=== PATIENT | female | born 1970 | race Hispanic/Latino ===

== ENCOUNTER 2017-04-30 20:52 | Inpatient (IN) | payer OTHER ==
[~2017-04-30] VITALS: Ht 157.5 cm; Wt 69.6 kg
[2017-04-30] MEDS ORDERED: ONDANSETRON HCL INJ 2 MG/ML VIAL IV STA (21:10)
[2017-04-30] MEDS ORDERED: SODIUM CHLORIDE 0.9% 1000ML 1,000 ML IV STA (21:10)
[2017-04-30] MEDS ORDERED: MORPHINE SULFATE 4 MG/ML SYR IV STA (21:10)
[2017-04-30] MEDS ORDERED: PHENOBARBITAL30 MG (21:12)
[2017-04-30] MEDS ORDERED: DIATRIZOATE MEGL/DIATRIZOA SOD 30 ML BTL PO ONE (21:32)
[2017-04-30 21:47] LABS: BASOPHILS % 0.2 % (0.0-1.0); LYMPHOCYTES % 7.1 % (18.0-39.1); MEAN CORPUSCULAR HEMOGLOBIN 29.4 pg (28-32); MEAN CORPUSCULAR HGB CONC 34.1 g/dL (31-35); MEAN CORPUSCULAR VOLUME 86.1 fL (81-99); MONOCYTES # (AUTO) 1.3 (0.2-0.8); MONOCYTES % 9.1 % (4.4-11.3); NEUTROPHILS # (AUTO) 11.7 (2.1-6.9); NEUTROPHILS % 79.4 % (38.7-80.0); PLATELET COUNT 372 x10e3/uL (140-360); RED BLOOD COUNT 5.11 x10e6/uL (3.6-5.1); RED CELL DISTRIBUTION WIDTH 14.6 % (11.7-14.4)
[2017-04-30 21:48] LABS: BILIRUBIN,URINE 2+ (NEGATIVE); COLOR,URINE AMBER (YELLOW); KETONES,URINE 2+ (NEGATIVE); LEUKOCYTE ESTERASE ,URINE TRACE (NEGATIVE); URINE UROBILINOGEN 4 mg/dL (0.2 - 1)
[2017-04-30 21:55] LABS: INR 1.29; PROTHROMBIN TIME 15.1 seconds (11.9-14.5)
[2017-04-30 21:56] LABS: PARTIAL THROMBOPLASTIN TIME 48.3 seconds (23.8-35.5)
[2017-04-30 22:00] LABS: CLARITY,URINE SL CLOUDY (CLEAR); NITRITE,URINE POSITIVE (NEGATIVE); PROTEIN,URINE DIPSTICK 1+ (NEGATIVE)
[2017-04-30] MEDS ORDERED: MORPHINE SULFATE 2 MG/ML SYR ONE (22:03)
[2017-04-30 22:04] LABS: AMORPHOUS SEDIMENT,URINE FEW (FEW); BACTERIA,URINE MANY /HPF; EPITHELIAL CELLS,URINE FEW /LPF; MUCUS,URINE FEW (RARE)
[2017-04-30 22:05] LABS: ALANINE AMINOTRANSFERASE 36 IU/L (0-55); ALBUMIN 2.9 g/dL (3.5-5.0); ALBUMIN/GLOBULIN RATIO 0.5 (0.8-2.0); ALKALINE PHOSPHATASE 110 IU/L (40-150); ANION GAP 20.3 mmol/L (8-16); BLOOD UREA NITROGEN 28 mg/dL (7-26); BUN/CREATININE RATIO 34 (6-25); CALCIUM 9.9 mg/dL (8.4-10.2); CARBON DIOXIDE 34 mmol/L (22-29); CHLORIDE 89 mmol/L (98-107); CREATINE KINASE 21 IU/L (29-168); CREATININE, SERUM 0.83 mg/dL (0.57-1.11); EST GLOMERULAR FILTRATION RATE > 60 ML/MIN (60-); GLUCOSE 157 mg/dL (74-118); MAGNESIUM 2.1 MG/DL (1.3-2.1); POTASSIUM 3.3 mmol/L (3.5-5.1); SODIUM 140 mmol/L (136-145)
[2017-04-30 22:11] LABS: B-TYPE NATRIURETIC PEPTIDE2 < 10.0 pg/mL (0-100)
[2017-04-30] MEDS ORDERED: CEFTRIAXONE SOD 1 GM VIAL IV ONE (22:15)
--- NOTE | 2017-04-30 22:24 | Diagnostic Imaging Report ---
CHEST SINGLE (PORTABLE), 04/30/2017 9:10 PM Technique: CHEST SINGLE (PORTABLE) Comparison: None available. Clinical history: Vomiting Findings: Unremarkable appearance of the heart, mediastinum, lungs and pleural spaces. Impression: 1. Lines/Tubes: None 2. No acute abnormality. Signed by: Dr Radha Plascencia MD on 04/30/2017 10:20 PM
--- NOTE | 2017-05-01 00:22 | Diagnostic Imaging Report ---
EXAM: CT ABDOMEN/PELVIS W DATE: 04/30/2017 9:10 PM INDICATION: Small bowel diverticulitis, abdominal pain COMPARISON: None TECHNIQUE: The abdomen and pelvis were scanned using a multidetector helical scanner. Coronal and sagittal reformations were obtained. Routine protocol performed. IV Contrast: 100 ml Isovue 370 Oral contrast was administered FINDINGS: LOWER THORAX: No consolidations LIVER/BILIARY: Subcentimeter left liver hypodensity is too small to characterize though likely benign/cyst. No ductal dilatation. GALLBLADDER: Possible layering gallbladder sludge/stones. SPLEEN: Unremarkable PANCREAS: Unremarkable ADRENALS: No nodules KIDNEYS: Symmetric perfusion. No enhancing masses. No hydronephrosis. GI TRACT: Moderate dilation of proximal small bowel with transition in the right midabdomen. Remaining small bowel and colon are decompressed. Several small bowel loops are thickened coursing through it and adjacent to these interloop collections in the right lower quadrant. Appendix is dilated containing appendicoliths measuring 1.1 cm and surrounded by small loculated gas and fluid collection. Several loculated interloop collections with dominant gas and fluid collection in the cul-de-sac with rim enhancement (8 x 6 cm). VESSELS: Unremarkable PERITONEUM/RETROPERITONEUM: No free air or fluid LYMPH NODES: No lymphadenopathy REPRODUCTIVE ORGANS/BLADDER: Unremarkable SOFT TISSUES: Unremarkable BONES: Predominantly L4-S1 degenerative changes. IMPRESSION: 1. Overall, constellation of findings is compatible with perforated viscus (suspect ruptured appendicitis) with multiple right lower quadrant interloop and pelvic contained gas and fluid collections/abscesses. 2. Developing small bowel obstruction. Discussed with Dr. Daigle at 1215 AM on 05/01/2017 Signed by: Dr Radha Plascencia MD on 05/01/2017 12:18 AM
[2017-05-01] MEDS ORDERED: BENZOCAINE/TETRACAINE/BUTAMBEN AERO SPRAY 56 GM CAN TOP ONE (00:30)
[2017-05-01] MEDS ORDERED: KCL 20MEQ/.9 SOD CHL 1,000 ML IV ONE (01:00)
[2017-05-01] MEDS: PIPER-TAZ 3.375 GM 50 ML IV SCH ×3 (01:07→11:00)
[2017-05-01] MEDS ORDERED: SODIUM CHLORIDE 0.9% 1000ML 1,000 ML ONE ×2 (01:07→19:24)
[2017-05-01] MEDS: METRONIDAZOLE 500MG/NS 100ML 100 ML IV SCH ×4 (01:07→23:00)
[2017-05-01] MEDS ORDERED: SODIUM CHLORIDE 0.9% 1000ML 1,000 ML IV STA (01:08)
[2017-05-01] MEDS ORDERED: ONDANSETRON HCL INJ 2 MG/ML VIAL IV PRN (01:15)
[2017-05-01] MEDS ORDERED: MORPHINE SULFATE 2 MG/ML SYR IV PRN (01:15)
--- OUTSIDE RECORDS SUMMARY | 2017-05-01 01:27 | XMS REPORT ---
Author Author [facility] Organization [facility] Address Unknown Phone Unavailable Care Team Providers Care Commercial Agent Name Role Phone RIYA ELAM Unavailable Unavailable Problems This patient has no known problems. Allergies, Adverse Reactions, Alerts This patient has no known allergies or adverse reactions. Medications This patient has no known medications. 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 Clinical history: Vomiting Findings: Unremarkable appearance of the heart, mediastinum, lungs and pleural spaces. Impression: 1. Lines/Tubes: None 2. No acute abnormality. Signed by : Dr Kezia Plascencia MD on 04/30/2017 10:20 PM Dictated By: KEZIA PLASCENCIA MD 19 Transcribed By: MARIAN on 04/30/172219 COPY TO: YESSENIA ASENCIO NP CT ABDOMEN/PELVIS W [place] [address] Patient Name: TERI LI MR #: [id number] : 1970 Age/Sex: 46/F Req #: [id number] Adm Physician: Ordered by: YESSENIA ASENCIO SPAR MACHINE OPERATOR Report #: [id number] Location: ER Room/Bed: Procedure: [id number] CT/CT ABDOMEN/PELVIS W Exam Date: 04/30/17 Exam Time: 5 REPORT STATUS: Signed EXAM: CT ABDOMEN/ PELVIS W DATE: 04/30/2017 9:10 PM INDICATION: Small bowel diverticulitis, abdominal pain COMPARISON: None TECHNIQUE: The abdomen and pelvis were scanned using a multidetector helical scanner. Coronal and sagittal reformations were obtained. Routine protocol performed. IV Contrast: 100 ml Isovue 370 Oral contrast was administered FINDINGS: LOWER THORAX: No consolidations LIVER/BILIARY: Subcentimeter left liver hypodensity is too small to characterize though likely benign/cyst. No ductal dilatation. GALLBLADDER: Possible layering gallbladder sludge/stones. SPLEEN: Unremarkable PANCREAS: Unremarkable ADRENALS: No nodules KIDNEYS: Symmetric perfusion. No enhancing masses. No hydronephrosis. GI TRACT: Moderate dilation of proximal small bowel with transition in the right midabdomen. Remaining small bowel and colon are decompressed. Several small bowel loops are thickened coursing through it and adjacent to these interloop collections in the right lower quadrant. Appendix is dilated containing appendicoliths measuring 1.1 cm and surrounded by small loculated gas and fluid collection. Several loculated interloop collections with dominant gas and fluid collection in the cul-de-sac with rim enhancement (8 x 6 cm). VESSELS: Unremarkable PERITONEUM/RETROPERITONEUM: No free air or fluid LYMPH NODES: No lymphadenopathy REPRODUCTIVE ORGANS/BLADDER: Unremarkable SOFT TISSUES: Unremarkable BONES: Predominantly L4-S1 degenerative changes. IMPRESSION: 1. Overall, constellation of findings is compatible with perforated viscus (suspect ruptured appendicitis) with multiple right lower quadrant interloop and pelvic contained gas and fluid collections/ abscesses. 2. Developing small bowel obstruction. Discussed with Dr. Elam at 1215 AM on 05/01/2017 Signed by: Dr Kezia Plascencia MD on 05/01/2017 12:18 AM Dictated By: KEZIA PLASCENCIA MD Transcribed By: MARIAN on 05/01/1717 COPY TO: YESSENIA ASENCIO NP
[2017-05-01 02:06] VITALS: BP 116/74
[2017-05-01] MEDS ORDERED: SODIUM CHLORIDE 0.9% 50ML 50 ML ONE (03:18)
[2017-05-01] MEDS ORDERED: IOPAMIDOL 370 MG/ML 200 ML INFUS..BTL INJ ONE (03:19)
[2017-05-01 04:00] VITALS: BP 116/74
[2017-05-01 07:45] VITALS: BP 109/64
[2017-05-01] MEDS ORDERED: IBUPROFEN 600 MG TAB ONE (12:57)
[2017-05-01] MEDS ORDERED: DEXTROSE 5%/0.45% SOD CHL 1,000 ML IV SCH (13:00)
[2017-05-01] MEDS ORDERED: FOSPHENYTOIN 1,000 MG in SODIUM CHLORIDE 0.9% 250ML 250 ML IV ONE (13:15)
[2017-05-01] MEDS ORDERED: METRONIDAZOLE 500MG/NS 100ML 100 ML IV SCH (14:00)
[2017-05-01] MEDS ORDERED: PIPER-TAZ 3.375 GM 50 ML IV SCH (14:00)
[2017-05-01] MEDS ORDERED: PROPOFOL IV EMULSION 10 MG/ML 20 ML VIAL ONE (15:18)
[2017-05-01] MEDS ORDERED: SUCCINYLCHOLINE 200 MG/10 ML SYR ONE (15:18)
[2017-05-01] MEDS ORDERED: LIDOCAINE HCL 2% LOCAL INJ 5 ML SDV VIAL INJ ONE (15:18)
[2017-05-01] MEDS ORDERED: SEVOFLURANE INHAL SOLN 250 ML PEN BTL ONE (15:18)
[2017-05-01] MEDS ORDERED: DEXAMETHASONE SOD PHOS INJ 4 MG/ML VIAL ONE (15:18)
[2017-05-01] MEDS ORDERED: ONDANSETRON HCL INJ 2 MG/ML VIAL ONE (15:18)
[2017-05-01] MEDS ORDERED: FAMOTIDINE 10MG/ML 20ML VIAL IV SCH (17:00)
[2017-05-01] MEDS ORDERED: FAMOTIDINE 20 MG/2 ML VIAL IV SCH (17:00)
[2017-05-01] MEDS ORDERED: MIDAZOLAM HCL 2 MG/2 ML VIAL ONE (18:29)
[2017-05-01] MEDS ORDERED: FENTANYL CITRATE/PF 100MCG/2 ML INJ ONE (18:29)
[2017-05-01 18:47] LABS: CREATINE KINASE 11 IU/L (29-168)
[2017-05-01] MEDS ORDERED: METRONIDAZOLE 500MG/NS 100ML 100 ML IV ONE (19:57)
[2017-05-01] MEDS ORDERED: MORPHINE SULFATE 5 MG/ML VIAL ONE ×2 (21:57→22:13)
[2017-05-01] MEDS: SODIUM CHLORIDE 0.9% 250ML IRRIG IR SCH (22:57)
[2017-05-01] MEDS: PANTOPRAZOLE 40 MG 10ML VIAL IV SCH (23:36)
[2017-05-01] MEDS: DEXTROSE 5%/LACTATED RINGERS 1,000 ML IV SCH (23:36)
[2017-05-02] VITALS (7 sets, daily range): BP systolic 89–105; BP diastolic 50–69
[2017-05-02] MEDS: PIPER-TAZ 3.375 GM 50 ML IV SCH ×4 (00:40→18:38)
[2017-05-02] MEDS: SODIUM CHLORIDE 0.9% 250ML IRRIG IR SCH ×6 (02:12→21:00)
[2017-05-02] MEDS: ACETAMINOPHEN 1000 MG/100 ML IV PRN ×3 (02:26→08:35)
[2017-05-02] MEDS: DEXTROSE 5%/LACTATED RINGERS 1,000 ML IV SCH ×2 (05:42→13:42)
[2017-05-02] MEDS ORDERED: LACTATED RINGER'S 1,000 ML IV ONE ×2 (06:15→09:05)
[2017-05-02] MEDS: METRONIDAZOLE 500MG/NS 100ML 100 ML IV SCH ×3 (06:26→19:00)
[2017-05-02] MEDS: ONDANSETRON HCL INJ 2 MG/ML VIAL IV PRN ×2 (06:38→20:50)
[2017-05-02] MEDS: HYDROMORPHONE 1MG/1ML INJ IV PRN ×3 (06:38→20:50)
[2017-05-02 09:03] LABS: ANION GAP 11.1 mmol/L (8-16); BLOOD UREA NITROGEN 13 mg/dL (7-26); BUN/CREATININE RATIO 16 (6-25); CARBON DIOXIDE 26 mmol/L (22-29); CHLORIDE 107 mmol/L (98-107); CREATININE, SERUM 0.79 mg/dL (0.57-1.11); EST GLOMERULAR FILTRATION RATE > 60 ML/MIN (60-); GLUCOSE 225 mg/dL (74-118); POTASSIUM 3.1 mmol/L (3.5-5.1); SODIUM 141 mmol/L (136-145)
[2017-05-02 09:15] LABS: CALCIUM 7.5 mg/dL (8.4-10.2)
[2017-05-02 10:46] LABS: BASOPHILS % 0.1 % (0.0-1.0); HEMATOCRIT 31.4 % (34.2-44.1); HEMOGLOBIN 10.6 g/dL (12.0-16.0); LYMPHOCYTES # (AUTO) 0.6 (1.0-3.2); MEAN CORPUSCULAR HEMOGLOBIN 30.2 pg (28-32); MEAN CORPUSCULAR HGB CONC 33.8 g/dL (31-35); MEAN CORPUSCULAR VOLUME 89.5 fL (81-99); MONOCYTES # (AUTO) 0.8 (0.2-0.8); MONOCYTES % 2.7 % (4.4-11.3); NEUTROPHILS # (AUTO) 27.9 (2.1-6.9); PLATELET COUNT 241 x10e3/uL (140-360); RED BLOOD COUNT 3.51 x10e6/uL (3.6-5.1); RED CELL DISTRIBUTION WIDTH 15.2 % (11.7-14.4)
[2017-05-02 10:52] LABS: MAGNESIUM 1.2 MG/DL (1.3-2.1)
[2017-05-02] MEDS ORDERED: POTASSIUM CHLORIDE 20MEQ/100ML 200 ML IV SCH (11:00)
[2017-05-02 11:05] LABS: PHENYTOIN (DILANTIN) 6.48 ug/mL (10-20)
[2017-05-02 11:28] LABS: BAND NEUTROPHILS % (MANUAL) 9 %; LYMPHOCYTES % (MANUAL) 2 % (19-48); MONOCYTES % (MANUAL) 2 % (3.4-9.0); NEUTROPHILS % (MANUAL) 87 % (40-74)
[2017-05-02 11:29] LABS: PLATELET ESTIMATE ADEQUATE; PLATELET MORPHOLOGY COMMENT NORMAL; RBC MORPHOLOGY COMMENT NORMAL; TOXIC GRANULATION SLIGHT
[2017-05-02] MEDS ORDERED: FOSPHENYTOIN 500 MG in SODIUM CHLORIDE 0.9% 50ML 50 ML IV SCH (16:00)
[2017-05-02] MEDS ORDERED: MAGNESIUM SULFATE 2GM/50ML 50 ML IV SCH (16:00)
--- NOTE | 2017-05-02 16:47 | Operative Report ---
DATE OF PROCEDURE: May 01, 2017 PREOPERATIVE DIAGNOSES: Peritonitis and pelvic abscess, probably due to perforated appendicitis. POSTOPERATIVE DIAGNOSES: 1. Perforated appendicitis with pelvic abscess. 2. Peritonitis. 3. Multiple interloop, intra-abdominal abscesses. OPERATIONS PERFORMED: 1. Exploratory laparotomy. 2. Appendectomy. 3. Drainage of multiple pelvic and intra-abdominal abscesses. 4. Peritoneal lavage. ANESTHESIA: General. COMPLICATIONS: None. ESTIMATED BLOOD LOSS: 100 mL. DESCRIPTION OF PROCEDURE: With the patient lying in bed in the supine position under good general endotracheal anesthesia, the abdomen was prepped with Betadine solution and draped in the usual manner. A midline incision was made in the lower abdomen and carried down through the subcutaneous tissue and through the midline fascia. The peritoneum was opened and the abdomen was entered. Upon entering the abdominal cavity, immediately a large pelvic abscess was encountered, which was aspirated. There were also multiple interloop abscesses in the area of the small bowel and the terminal ileum. The abscesses were being covered up by all of the pelvic organs including the ovary, both tubes and ovaries, and the sigmoid colon. Examination at this point revealed a perforated appendicitis. The cecum was then mobilized medially and the mesentery of the appendix was ligated with 2-0 Vicryl. The base of the appendix was ligated with #0 Vicryl. The appendix was resected and sent for pathological examination. The mucosa of the stump was cauterized and the stump was inverted with a pursestring suture of 2-0 Vicryl. After this was done, all of the loculations were broken down. The bowel was run from one end to the other, and all of the interloop abscesses were debrided and broken down, and then the abdomen was copiously irrigated with many liters of saline solution until the effluent came back perfectly clear. A 10 flat Bossman-Beckwith drain was left in the pelvis and brought out through a separate stab wound incision in the right lower quadrant and the abdomen was then closed in layers. The peritoneum was closed with a running suture of #1 Vicryl. The midline fascia was closed with a running suture of #1 Vicryl. A 1/4-inch Acton drain was left in the subcutaneous tissue. The subcutaneous tissue was approximated loosely with 2-0 chromic and the skin was closed with clips. A dressing was applied. The sponge, lap, and needle count was correct. The patient tolerated the procedure well and returned to the recovery room in stable condition. Job#: [id number]
[2017-05-02] MEDS: PANTOPRAZOLE 40 MG 10ML VIAL IV SCH (21:30)
[2017-05-03 00:15] VITALS: BP 92/59
[2017-05-03] MEDS: PIPER-TAZ 3.375 GM 50 ML IV SCH ×4 (00:15→17:59)
[2017-05-03] MEDS: DEXTROSE 5%/LACTATED RINGERS 1,000 ML IV SCH ×3 (00:15→13:42)
[2017-05-03] MEDS: METRONIDAZOLE 500MG/NS 100ML 100 ML IV SCH ×4 (01:00→17:59)
[2017-05-03] MEDS: SODIUM CHLORIDE 0.9% 250ML IRRIG IR SCH ×6 (01:00→20:52)
[2017-05-03] MEDS: ONDANSETRON HCL INJ 2 MG/ML VIAL IV PRN ×2 (03:12→10:01)
[2017-05-03] MEDS: HYDROMORPHONE 1MG/1ML INJ IV PRN ×3 (03:12→15:55)
[2017-05-03 04:12] VITALS: BP 88/59
[2017-05-03 08:57] LABS: BASOPHILS # (AUTO) 0.1 (0.0-0.1); BASOPHILS % 0.4 % (0.0-1.0); EOSINOPHILS % 0.1 % (0.0-6.0); HEMATOCRIT 29.5 % (34.2-44.1); HEMOGLOBIN 9.3 g/dL (12.0-16.0); LYMPHOCYTES # (AUTO) 1.1 (1.0-3.2); LYMPHOCYTES % 4.9 % (18.0-39.1); MEAN CORPUSCULAR HEMOGLOBIN 29.1 pg (28-32); MEAN CORPUSCULAR HGB CONC 31.5 g/dL (31-35); MEAN CORPUSCULAR VOLUME 92.2 fL (81-99); MONOCYTES # (AUTO) 1.1 (0.2-0.8); MONOCYTES % 4.8 % (4.4-11.3); NEUTROPHILS # (AUTO) 19.5 (2.1-6.9); NEUTROPHILS % 86.1 % (38.7-80.0); PLATELET COUNT 211 x10e3/uL (140-360); RED CELL DISTRIBUTION WIDTH 15.6 % (11.7-14.4)
[2017-05-03 09:17] LABS: ANION GAP 7.1 mmol/L (8-16); BLOOD UREA NITROGEN 8 mg/dL (7-26); BUN/CREATININE RATIO 14 (6-25); CALCIUM 7.9 mg/dL (8.4-10.2); CARBON DIOXIDE 32 mmol/L (22-29); CHLORIDE 112 mmol/L (98-107); CREATININE, SERUM 0.59 mg/dL (0.57-1.11); EST GLOMERULAR FILTRATION RATE > 60 ML/MIN (60-); GLUCOSE 158 mg/dL (74-118); POTASSIUM 3.1 mmol/L (3.5-5.1); SODIUM 148 mmol/L (136-145)
[2017-05-03] MEDS ORDERED: POTASSIUM CHLORIDE 20MEQ/100ML 300 ML IV SCH (10:00)
[2017-05-03] MEDS ORDERED: FOSPHENYTOIN 50 MG/ML VIAL IV SCH (10:00)
[2017-05-03 10:40] VITALS: BP 94/53
[2017-05-03] MEDS ORDERED: FOSPHENYTOIN IV SCH (11:30)
[2017-05-03] MEDS ORDERED: SODIUM CHLORIDE 0.9% IV SCH (11:30)
[2017-05-03 14:10] LABS: BAND NEUTROPHILS % (MANUAL) 1 %; LYMPHOCYTES % (MANUAL) 3 % (19-48); METAMYELOCYTES % (MANUAL) 1 % (0-0); MONOCYTES % (MANUAL) 5 % (3.4-9.0); MYELOCYTES % (MANUAL) 2 % (0-0); NEUTROPHILS % (MANUAL) 87 % (40-74); PLATELET ESTIMATE ADEQUATE; PLATELET MORPHOLOGY COMMENT NORMAL; RBC MORPHOLOGY COMMENT NORMAL
[2017-05-03 15:57] VITALS: BP 105/57
[2017-05-03 20:00] VITALS: BP 98/66
[2017-05-03] MEDS: BISACODYL 10 MG SUPP PR SCH (20:42)
[2017-05-03] MEDS: PANTOPRAZOLE 40 MG 10ML VIAL IV SCH (21:45)
[2017-05-04] VITALS (8 sets, daily range): BP systolic 96–130; BP diastolic 56–79
[2017-05-04] MEDS: DEXTROSE 5%/LACTATED RINGERS 1,000 ML IV SCH ×2 (00:14→08:57)
[2017-05-04] MEDS: METRONIDAZOLE 500MG/NS 100ML 100 ML IV SCH ×4 (00:14→17:30)
[2017-05-04] MEDS: PIPER-TAZ 3.375 GM 50 ML IV SCH ×3 (00:14→13:00)
[2017-05-04] MEDS: SODIUM CHLORIDE 0.9% 250ML IRRIG IR SCH ×2 (00:20→05:12)
[2017-05-04] MEDS ORDERED: FOSPHENYTOIN 50 MG/ML 10ML VIAL ONE (03:01)
[2017-05-04] MEDS ORDERED: SODIUM CHLORIDE 0.9% 100 ML ONE (03:01)
[2017-05-04] MEDS ORDERED: SODIUM CHLORIDE 0.9% 50ML 50 ML ONE (03:10)
[2017-05-04] MEDS: SODIUM CHLORIDE 0.9% IV SCH ×3 (03:10→20:13)
[2017-05-04] MEDS: FOSPHENYTOIN IV SCH ×3 (03:10→20:13)
[2017-05-04 06:25] LABS: BASOPHILS # (AUTO) 0.1 (0.0-0.1); BASOPHILS % 0.4 % (0.0-1.0); EOSINOPHILS % 0.1 % (0.0-6.0); HEMATOCRIT 30.1 % (34.2-44.1); HEMOGLOBIN 9.7 g/dL (12.0-16.0); LYMPHOCYTES # (AUTO) 1.4 (1.0-3.2); LYMPHOCYTES % 8.6 % (18.0-39.1); MEAN CORPUSCULAR HEMOGLOBIN 29.5 pg (28-32); MEAN CORPUSCULAR HGB CONC 32.2 g/dL (31-35); MEAN CORPUSCULAR VOLUME 91.5 fL (81-99); MONOCYTES # (AUTO) 0.9 (0.2-0.8); MONOCYTES % 5.6 % (4.4-11.3); NEUTROPHILS # (AUTO) 13.3 (2.1-6.9); NEUTROPHILS % 80.3 % (38.7-80.0); PLATELET COUNT 194 x10e3/uL (140-360); RED BLOOD COUNT 3.29 x10e6/uL (3.6-5.1); RED CELL DISTRIBUTION WIDTH 15.6 % (11.7-14.4)
[2017-05-04 06:58] LABS: ANION GAP 9.5 mmol/L (8-16); BLOOD UREA NITROGEN 8 mg/dL (7-26); BUN/CREATININE RATIO 14 (6-25); CALCIUM 8.2 mg/dL (8.4-10.2); CARBON DIOXIDE 28 mmol/L (22-29); CHLORIDE 111 mmol/L (98-107); CREATININE, SERUM 0.58 mg/dL (0.57-1.11); EST GLOMERULAR FILTRATION RATE > 60 ML/MIN (60-); GLUCOSE 136 mg/dL (74-118); POTASSIUM 3.5 mmol/L (3.5-5.1); SODIUM 145 mmol/L (136-145)
[2017-05-04] MEDS: HYDROMORPHONE 1MG/1ML INJ IV PRN (07:47)
[2017-05-04 08:27] LABS: BAND NEUTROPHILS % (MANUAL) 9 %; LYMPHOCYTES % (MANUAL) 12 % (19-48); MONOCYTES % (MANUAL) 2 % (3.4-9.0); NEUTROPHILS % (MANUAL) 77 % (40-74)
[2017-05-04 08:28] LABS: PLATELET ESTIMATE ADEQUATE; PLATELET MORPHOLOGY COMMENT NORMAL; RBC MORPHOLOGY COMMENT NORMAL
[2017-05-04] MEDS: BISACODYL 10 MG SUPP PR SCH ×2 (08:57→21:45)
[2017-05-04] MEDS ORDERED: LACTATED RINGER'S 500 ML IV ONE ×2 (09:45→10:10)
[2017-05-04] MEDS ORDERED: MAGNESIUM SULFATE 2GM/50ML 50 ML IV ONE (10:00)
[2017-05-04] MEDS ORDERED: POTASSIUM CHLORIDE 20MEQ/100ML 200 ML IV ONE (10:00)
[2017-05-04] MEDS: PANTOPRAZOLE 40 MG 10ML VIAL IV SCH (21:24)
[2017-05-05] VITALS (7 sets, daily range): BP systolic 109–119; BP diastolic 57–80
[2017-05-05] MEDS: FOSPHENYTOIN IV SCH (02:48)
[2017-05-05] MEDS: SODIUM CHLORIDE 0.9% IV SCH (02:48)
[2017-05-05] MEDS: PIPER-TAZ 3.375 GM 50 ML IV SCH ×3 (06:00→17:30)
[2017-05-05 06:17] LABS: BASOPHILS # (AUTO) 0.1 (0.0-0.1); BASOPHILS % 0.4 % (0.0-1.0); HEMOGLOBIN 10.2 g/dL (12.0-16.0); LYMPHOCYTES # (AUTO) 1.6 (1.0-3.2); MEAN CORPUSCULAR HEMOGLOBIN 29.7 pg (28-32); MEAN CORPUSCULAR HGB CONC 32.9 g/dL (31-35); MEAN CORPUSCULAR VOLUME 90.1 fL (81-99); MONOCYTES # (AUTO) 0.7 (0.2-0.8); MONOCYTES % 5.9 % (4.4-11.3); NEUTROPHILS # (AUTO) 8.5 (2.1-6.9); NEUTROPHILS % 74.3 % (38.7-80.0); PLATELET COUNT 219 x10e3/uL (140-360); RED BLOOD COUNT 3.44 x10e6/uL (3.6-5.1); RED CELL DISTRIBUTION WIDTH 15.5 % (11.7-14.4)
[2017-05-05 06:34] LABS: ANION GAP 9.1 mmol/L (8-16); BLOOD UREA NITROGEN 8 mg/dL (7-26); BUN/CREATININE RATIO 15 (6-25); CALCIUM 8.2 mg/dL (8.4-10.2); CARBON DIOXIDE 26 mmol/L (22-29); CHLORIDE 111 mmol/L (98-107); CREATININE, SERUM 0.53 mg/dL (0.57-1.11); EST GLOMERULAR FILTRATION RATE > 60 ML/MIN (60-); GLUCOSE 105 mg/dL (74-118); MAGNESIUM 1.5 MG/DL (1.3-2.1); POTASSIUM 4.1 mmol/L (3.5-5.1); SODIUM 142 mmol/L (136-145)
[2017-05-05 07:39] LABS: ANISOCYTOSIS SLIGHT; LYMPHOCYTES % (MANUAL) 12 % (19-48); MONOCYTES % (MANUAL) 13 % (3.4-9.0); MYELOCYTES % (MANUAL) 1 % (0-0); NEUTROPHILS % (MANUAL) 74 % (40-74); PLATELET ESTIMATE ADEQUATE; PLATELET MORPHOLOGY COMMENT NORMAL
[2017-05-05 07:40] LABS: RBC MORPHOLOGY COMMENT NORMAL
[2017-05-05] MEDS ORDERED: BISACODYL 10 MG SUPP PR NR (09:30)
[2017-05-05] MEDS: BISACODYL 10 MG SUPP PR SCH (09:52)
[2017-05-05] MEDS: METRONIDAZOLE 500MG/NS 100ML 100 ML IV SCH ×3 (13:46→17:30)
[2017-05-05] MEDS: DEXTROSE 5%/LACTATED RINGERS 1,000 ML IV SCH ×2 (13:46→13:49)
[2017-05-05] MEDS ORDERED: ALBUMIN 5% 250 ML IV SCH (15:30)
[2017-05-05] MEDS: PANTOPRAZOLE 40 MG 10ML VIAL IV SCH (21:43)
[2017-05-06] MEDS: METRONIDAZOLE 500MG/NS 100ML 100 ML IV SCH ×4 (00:19→18:07)
[2017-05-06 00:37] VITALS: BP 121/78
[2017-05-06] MEDS: PIPER-TAZ 3.375 GM 50 ML IV SCH ×4 (00:43→17:02)
[2017-05-06 04:00] VITALS: BP 119/79
[2017-05-06 08:00] VITALS: BP 113/58
[2017-05-06] MEDS ORDERED: PHENOBARBITAL 30 MG TAB PO SCH (09:00)
[2017-05-06] MEDS: DEXTROSE 5%/LACTATED RINGERS 1,000 ML IV SCH ×2 (11:08→20:27)
[2017-05-06 12:00] VITALS: BP_SYST 113; BP_SYST 126; BP_DIAS 58; BP_DIAS 59
[2017-05-06] MEDS ORDERED: ACETAMINOPHEN 325 MG TAB PO PRN (13:00)
[2017-05-06] MEDS: CARBAMAZEPINE 200 MG TAB PO SCH (14:19)
[2017-05-06 16:00] VITALS: BP 114/58
[2017-05-06] MEDS ORDERED: CARBAMAZEPINE200 MG PO (18:16)
[2017-05-06 20:00] VITALS: BP 124/71
[2017-05-06] MEDS: PANTOPRAZOLE 40 MG 10ML VIAL IV SCH (20:27)
[2017-05-07] VITALS: BP 124/57
[2017-05-07] MEDS: PIPER-TAZ 3.375 GM 50 ML IV SCH ×4 (00:34→17:00)
[2017-05-07] MEDS: METRONIDAZOLE 500MG/NS 100ML 100 ML IV SCH ×6 (00:55→23:42)
[2017-05-07] MEDS: ACETAMINOPHEN/CODEINE 300MG - 30MG TAB PO PRN ×2 (01:51→17:35)
[2017-05-07 04:00] VITALS: BP 124/58
[2017-05-07 06:12] LABS: BASOPHILS # (AUTO) 0.1 (0.0-0.1); BASOPHILS % 0.6 % (0.0-1.0); EOSINOPHILS % 0.1 % (0.0-6.0); HEMATOCRIT 29.8 % (34.2-44.1); HEMOGLOBIN 9.8 g/dL (12.0-16.0); LYMPHOCYTES # (AUTO) 1.9 (1.0-3.2); LYMPHOCYTES % 16.4 % (18.0-39.1); MEAN CORPUSCULAR HEMOGLOBIN 29.3 pg (28-32); MEAN CORPUSCULAR HGB CONC 32.9 g/dL (31-35); MONOCYTES # (AUTO) 0.9 (0.2-0.8); MONOCYTES % 7.7 % (4.4-11.3); NEUTROPHILS % 70.3 % (38.7-80.0); PLATELET COUNT 196 x10e3/uL (140-360); RED BLOOD COUNT 3.35 x10e6/uL (3.6-5.1)
[2017-05-07 08:00] VITALS: BP 110/59
[2017-05-07] MEDS: CARBAMAZEPINE 200 MG TAB PO SCH (08:00)
[2017-05-07 10:03] LABS: LYMPHOCYTES % (MANUAL) 21 % (19-48); MONOCYTES % (MANUAL) 10 % (3.4-9.0); NEUTROPHILS % (MANUAL) 67 % (40-74)
[2017-05-07 10:04] LABS: ANISOCYTOSIS SLIGHT; HYPOCHROMASIA SLIGHT; PLATELET ESTIMATE ADEQUATE; PLATELET MORPHOLOGY COMMENT NORMAL; POIKILOCYTOSIS SLIGHT; RBC MORPHOLOGY COMMENT NORMAL
[2017-05-07 12:00] VITALS: BP 101/60
[2017-05-07 16:00] VITALS: BP 101/52
[2017-05-07] MEDS: PANTOPRAZOLE SOD 40 MG TABEC PO SCH (17:42)
[2017-05-07] MEDS: DEXTROSE 5%/LACTATED RINGERS 1,000 ML IV SCH (23:39)
[2017-05-08] VITALS: BP 112/60
[2017-05-08 04:00] VITALS: BP 122/60
[2017-05-08] MEDS: ACETAMINOPHEN/CODEINE 300MG - 30MG TAB PO PRN (04:14)
[2017-05-08] MEDS: PIPER-TAZ 3.375 GM 50 ML IV SCH ×4 (05:30→17:17)
[2017-05-08] MEDS: METRONIDAZOLE 500MG/NS 100ML 100 ML IV SCH ×3 (05:53→18:00)
[2017-05-08 07:54] VITALS: BP 115/78
[2017-05-08 08:57] VITALS: BP 115/78
[2017-05-08] MEDS: CARBAMAZEPINE 200 MG TAB PO SCH (08:57)
[2017-05-08] MEDS: PANTOPRAZOLE SOD 40 MG TABEC PO SCH (08:57)
[2017-05-08 11:53] VITALS: BP 111/71
--- NOTE | 2017-05-08 14:04 | Discharge Summary ---
PRIMARY CARE DOCTOR: None. FINAL DIAGNOSIS: Peritonitis due to perforated appendicitis with pelvic abscesses. SECONDARY DIAGNOSIS: Seizure disorder. DIESEL INSPECTOR: Dr. Jay Zhao, surgeon. PROCEDURES/STUDIES PERFORMED 1. CT of the abdomen and pelvis. 2. Exploratory laparotomy with appendectomy. HISTORY: Per [facility]. HOSPITAL COURSE: The patient was admitted. IV Flagyl and Zosyn were started. The patient was taken to the operating room. Initially, she was n.p.o. Subsequently, the diet was slowly restarted. Currently, the patient is tolerating p.o. Today is postoperative day #7. Her GABRIEL drain and NG tube were subsequently removed. The patient should be going home later today. I have provided a prescription for Tylenol No. 3 as needed. Oral antibiotic if indicated by Dr. Zhao. The patient will follow up with Dr. Zhao. CONDITION ON DISCHARGE: Stable. DISCHARGE MEDICATIONS: Please see medication reconciliation form. The patient was seen and examined today. It took 32 minutes total to discharge this patient. Job#: [id number]
[2017-05-08 16:26] VITALS: BP 105/69
[2017-05-08] MEDS ORDERED: LEVAQUIN500 MG PO (19:55)
[2017-05-08] MEDS ORDERED: TYLENOL WITH C1 EACH PO (19:55)
== END 2017-05-08 20:28 | disposition home or self-care (01) | DRG 853 ==
LOC: ER 20:52 → ERHOLD 05-01 01:23 → MED/SURG2 05-01 01:34
PROVIDERS: ADMIT Internal Medicine; ATTEND Internal Medicine
PROC: 0DTJ0ZZ Resection of Appendix, Open Approach (ICD-10-PCS; principal; 2017-05-01 20:00)
PROC: 0W9J0ZX Drainage of Pelvic Cavity, Open Approach, Diagnostic (ICD-10-PCS; principal; 2017-05-01 20:00)
DX: A41.9 Sepsis, unspecified organism (principal); K35.2 Acute appendicitis with generalized peritonitis; E87.0 Hyperosmolality and hypernatremia; N39.0 Urinary tract infection, site not specified; E86.0 Dehydration; B96.20 Unspecified Escherichia coli [E. coli] as the cause of diseases classified elsewhere; R65.20 Severe sepsis without septic shock; G40.909 Epilepsy, unspecified, not intractable, without status epilepticus; E87.6 Hypokalemia; R73.9 Hyperglycemia, unspecified; E83.42 Hypomagnesemia
CPT/HCPCS: 36415; 71045; 74177; 80048; 80053; 80184; 80185; 81001; 82550; 82553; 83036; 83605; 83735; 83880; 84484; 84702; 85025; 85610; 85730; 87040; 87086; 87186; 88304; 93005; 99284; J0696; J1100; J1170; J2001; J2250; J2270; J2405; J2543; J3480; J7030; J7050; J7120; Q2009; Q9967